=== PATIENT | male | born 1990 | race Caucasian/White ===

== ENCOUNTER 2017-03-19 13:04 | Emergency (ER) | payer MEDICAID, OTHER ==
[~2017-03-19] VITALS: Ht 175.3 cm; Wt 81.6 kg
[~2017-03-19 13:04] MED LIST: NAPR-223 PO; TRAM50TA2 PO
[2017-03-19 13:57] VITALS: BP 133/97
[2017-03-19] MEDS ORDERED: BACITRACIN TOP OINT 1 UD PKG TOP ONE (14:15)
[2017-03-19] MEDS ORDERED: LIDOCAINE 1% HCL (LOCAL ANESTH.) INJ 20ML MDV ID ONE (14:15)
[2017-03-19] MEDS ORDERED: IBUPROFEN 800 MG TAB PO ONE (15:00)
== END 2017-03-19 15:56 | disposition home or self-care (01) ==
LOC: ER 13:04
DX: S61.213A Laceration without foreign body of left middle finger without damage to nail, initial encounter (principal); Z88.6 Allergy status to analgesic agent; W45.8XXA Other foreign body or object entering through skin, initial encounter; Y93.89 Activity, other specified; Y92.69 Other specified industrial and construction area as the place of occurrence of the external cause; Y99.8 Other external cause status
CPT/HCPCS: 12001; 73140; 99284; J2001